=== PATIENT | male | born 1955 | race Caucasian/White ===

== ENCOUNTER 2016-07-10 07:15 | Emergency (ER) | payer OTHER, BC ==
[~2016-07-10] VITALS: Ht 190.5 cm; Wt 126.3 kg
[~2016-07-10 07:15] MED LIST: ACYCLOVIR800 MG PO; ASPIRIN325 MG PO; ATIVAN2 MG PO; ATIVAN2 MG/ML IM; Ambien PO; BENADRYL50 MG PO; COGENTIN1 MG PO; HALDOL5 MG PO; HALDOL5 MG/M1 IM; HYDROCODON-ACE1 EAC7 PO; INVEGA SUS234 MG/1.5; KEFLEX500 MG PO; LORTAB 5-325 M1 EACH PO; LOTRIMIN AF SP150 GM TP; LYRICA150 MG PO; MEDROL DOSEPAK4 MG PO; NOHOMEMEDS; ONMEL200 MG PO; PROAIR RESPICL90 MCG IH; PROLIXIN DEC25 MG/ML IM; PROLIXIN10 MG PO; ROBITUSSIN AC,T10 ML PO; SEROQUEL100 MG PO; Seroquel PO; Tylenol Extra Streng PO; ZITHROMAX Z-PA250 MG PO; ZITHROMAX250 MG PO; ZYPREXA15 MG; ZYPREXA5 MG PO
[2016-07-10 07:17] VITALS: BP 121/82
[2016-07-10] MEDS ORDERED: ANUSOL-HC21 GM PR (07:39)
== END 2016-07-10 07:55 | disposition home or self-care (01) ==
LOC: EME 07:15
DX: K64.9 Unspecified hemorrhoids (principal); J45.909 Unspecified asthma, uncomplicated; F17.200 Nicotine dependence, unspecified, uncomplicated
CPT/HCPCS: 99281; 99283

== ENCOUNTER 2017-02-11 11:29 | Emergency (ER) | payer OTHER, BC ==
[~2017-02-11] VITALS: Ht 190.5 cm; Wt 123.0 kg
[~2017-02-11 11:29] MED LIST changes: +ANUSOL-HC21 GM PR
[2017-02-11 11:39] VITALS: BP 94/65
[2017-02-11] MEDS ORDERED: BACTRIM,SEPT1 TABLET PO (14:33)
== END 2017-02-11 14:41 | disposition home or self-care (01) ==
LOC: EME 11:29
DX: L03.113 Cellulitis of right upper limb (principal); S50.311A Abrasion of right elbow, initial encounter; X58.XXXA Exposure to other specified factors, initial encounter; F17.200 Nicotine dependence, unspecified, uncomplicated; Z88.0 Allergy status to penicillin
CPT/HCPCS: 99281; 99283

== ENCOUNTER 2017-02-11 16:06 | Emergency (ER) | payer OTHER, BC ==
[~2017-02-11 16:06] MED LIST changes: +BACTRIM,SEPT1 TABLET PO
== END 2017-02-11 16:22 | disposition left against medical advice (07) ==
LOC: EME 16:06
DX: M79.601 Pain in right arm (principal); Z53.21 Procedure and treatment not carried out due to patient leaving prior to being seen by health care provider
CPT/HCPCS: 99281; 99283

== ENCOUNTER 2017-04-13 10:48 | Emergency (ER) | payer OTHER, BC ==
[~2017-04-13] VITALS: Ht 190.5 cm; Wt 127.7 kg
[2017-04-13 13:02] VITALS: BP 98/65
[2017-04-13] MEDS ORDERED: PREDNISONE20 MG PO (13:03)
[2017-04-13] MEDS ORDERED: TESSALON PERLE100 MG PO (13:03)
[2017-04-13] MEDS ORDERED: VENTOLIN HFA18 GM IH (13:03)
== END 2017-04-13 13:04 | disposition home or self-care (01) ==
LOC: EME 10:48
PROVIDERS: Physician Assistant
DX: J06.9 Acute upper respiratory infection, unspecified (principal); J45.909 Unspecified asthma, uncomplicated; F32.9 Major depressive disorder, single episode, unspecified; F31.9 Bipolar disorder, unspecified; F20.9 Schizophrenia, unspecified; Z88.0 Allergy status to penicillin; F17.200 Nicotine dependence, unspecified, uncomplicated
CPT/HCPCS: 71020; 87502; 94640; 99281; 99283; J7512

== ENCOUNTER 2017-05-02 16:14 | Emergency (ER) | payer OTHER, BC ==
[~2017-05-02] VITALS: Ht 190.5 cm; Wt 122.3 kg
[~2017-05-02 16:14] MED LIST changes: +PREDNISONE20 MG PO; +TESSALON PERLE100 MG PO; +VENTOLIN HFA18 GM IH
[2017-05-02] MEDS ORDERED: INDOCIN50 MG PO (18:09)
[2017-05-02 18:38] VITALS: BP 120/81
== END 2017-05-02 18:39 | disposition home or self-care (01) ==
LOC: EME 16:14
DX: M19.032 Primary osteoarthritis, left wrist (principal); M21.932 Unspecified acquired deformity of left forearm; Z87.81 Personal history of (healed) traumatic fracture; F17.200 Nicotine dependence, unspecified, uncomplicated; Z88.0 Allergy status to penicillin
CPT/HCPCS: 73110; 99281; 99283

== ENCOUNTER 2017-12-08 03:53 | Inpatient (IN) | payer OTHER, BC ==
[~2017-12-08] VITALS: Ht 188 cm; Wt 130.2 kg
[~2017-12-08 03:53] MED LIST changes: +INDOCIN50 MG PO
[2017-12-08 04:41] LABS: HEMATOCRIT 39.6 % (38.0-50.0); HEMOGLOBIN 13.3 G/DL (12.5-16.6); MCH 31.1 PG (29.0-34.0); MCHC 33.6 G/DL (30.0-36.0); MCV 92.5 FL (86-99); PLATELET COUNT 209 K/uL (156-360); RBC DIS.WIDTH-CV 14.5 % (11.8-14.6); RBC DIS.WIDTH-SD 48.8 % (39-53); RED BLOOD COUNT 4.28 M/uL (4.00-5.50); WHITE BLOOD COUNT 8.6 K/uL (4.1-10.2)
[2017-12-08 04:52] LABS: CHLORIDE 110 mEq/L (99-109); POTASSIUM 3.5 mEq/L (3.7-5.4); SODIUM 139 mEq/L (136-147)
[2017-12-08 04:54] LABS: GLUCOSE 115 mg/dL (70-99)
[2017-12-08 04:57] LABS: SERUM ETHYL ALCOHOL < 10 mg/dL
[2017-12-08 04:58] LABS: CREATININE 0.8 mg/dL (0.6-1.3); GFR ESTIMATE (CALCULATED) > 59 mL/min/ (58.99-99999); UREA NITROGEN (BUN) 14 mg/dL (9-23)
[2017-12-08 10:38] VITALS: BP 125/76
[2017-12-08 15:30] VITALS: BP 129/71
[2017-12-09 07:48] VITALS: BP 144/67
[2017-12-09 11:09] VITALS: BP 140/80
[2017-12-09 16:44] VITALS: BP 157/72
[2017-12-10 07:42] VITALS: BP 134/80
[2017-12-10 16:19] VITALS: BP 135/82
[2017-12-11 07:56] VITALS: BP 135/81
[2017-12-11 15:23] VITALS: BP 156/86
[2017-12-12 07:49] VITALS: BP 151/101
[2017-12-12] MEDS ORDERED: NYSTATIN15 GM TP (15:51)
[2017-12-12 15:53] VITALS: BP 125/67
[2017-12-13 07:46] VITALS: BP 120/75
[2017-12-13 14:43] VITALS: BP 135/78
[2017-12-14 09:06] VITALS: BP 156/98
[2017-12-14 15:21] VITALS: BP 140/86
[2017-12-14 20:38] VITALS: BP 123/74
[2017-12-15 09:22] VITALS: BP 123/69
[2017-12-15 16:37] VITALS: BP 133/67
[2017-12-16 08:04] VITALS: BP 118/78
[2017-12-16] MEDS ORDERED: QUETIAPINE FUM200 MG PO (09:25)
[2017-12-16] MEDS ORDERED: TRAZODONE HCL50 MG PO (09:25)
[2017-12-16] MEDS ORDERED: FLUPHENAZINE HC10 MG PO (09:25)
[2017-12-16] MEDS ORDERED: HYDROCORTISONE30 G2 PR (09:25)
[2017-12-16] MEDS ORDERED: VENTOLIN HFA18 GM IH (09:25)
[2017-12-16] MEDS ORDERED: FLUPHENAZI25 MG/1 ML IM (09:26)
== END 2017-12-16 14:20 | disposition home or self-care (01) | DRG 885 ==
LOC: EME 03:53 → EDOF 10:11 → 1WEST 10:11 → ENRESERV 10:18 → 1WEST 10:29
PROVIDERS: Emergency Medicine
DX: F20.0 Paranoid schizophrenia (principal); G24.01 Drug induced subacute dyskinesia; F32.9 Major depressive disorder, single episode, unspecified; F41.9 Anxiety disorder, unspecified; G47.33 Obstructive sleep apnea (adult) (pediatric); E66.01 Morbid (severe) obesity due to excess calories; Z68.42 Body mass index [BMI] 45.0-49.9, adult; J45.909 Unspecified asthma, uncomplicated; F17.200 Nicotine dependence, unspecified, uncomplicated; Z88.0 Allergy status to penicillin; Z91.14 Patient's other noncompliance with medication regimen
CPT/HCPCS: 80048; 81003; 85027; 90839; 94799; 97150 GO; 97166 GO; 99281; 99285; G0480; J1630; J2060; J2680; Q0177

== ENCOUNTER 2017-12-27 01:24 | Emergency (ER) | payer OTHER, BC ==
[~2017-12-27] VITALS: Ht 188 cm; Wt 134.3 kg
[~2017-12-27 01:24] MED LIST changes: +FLUPHENAZI25 MG/1 ML IM; +FLUPHENAZINE HC10 MG PO; +HYDROCORTISONE30 G2 PR; +NYSTATIN15 GM TP; +QUETIAPINE FUM200 MG PO; +TRAZODONE HCL50 MG PO
[2017-12-27 03:03] VITALS: BP 131/90
== END 2017-12-27 03:04 | disposition home or self-care (01) ==
LOC: EME → EDBD 01:24 → EME 03:04
DX: F20.9 Schizophrenia, unspecified (principal)
CPT/HCPCS: 90839; 99281; 99284